=== PATIENT | male | born 2005 | race African-American/Black ===

== ENCOUNTER 2025-04-23 19:03 | Emergency (ER) | payer SELFPAY ==
[2025-04-23 19:54] LABS: BILIRUBIN,URINE NEGATIVE (NEGATIVE); COLOR,URINE YELLOW; GLUCOSE,URINE NEGATIVE (NEGATIVE); KETONES,URINE NEGATIVE (NEGATIVE); LEUKOCYTE ESTERASE,URINE TRACE (NEGATIVE); NITRITE,URINE NEGATIVE (NEGATIVE); OCCULT BLOOD,URINE LARGE (NEGATIVE); PROTEIN,URINE NEGATIVE (NEGATIVE); UROBILINOGEN,URINE 0.2 EU/dL (<2.0)
[2025-04-23 19:55] LABS: APPEARANCE,URINE SLT CLOUDY
[2025-04-23 19:59] LABS: BACTERIA,URINE FEW (NEGATIVE); EPITHELIAL CELLS,URINE OCCASIONAL (NONE-FEW); MUCUS,URINE LIGHT (NONE-MOD); RBC,URINE 50-75 (0-2/HPF)
[2025-04-23 22:06] LABS: C. TRACHOMATIS BY PCR DETECTED; N. GONORRHOEAE BY PCR NOT DETECTED
[2025-04-23] MEDS: Doxycycline Monohydrate 100 MG Cap PO ONE (22:22)
== END 2025-04-23 22:24 | disposition home or self-care (01) ==
LOC: MW.ED 19:03
DX: A74.9 Chlamydial infection, unspecified (principal); Z75.3 Unavailability and inaccessibility of health-care facilities
CPT/HCPCS: 81001; 87086; 87491; 87591; 99284; A9270; 99283